=== PATIENT | female | born 1995 | race Caucasian/White ===

== ENCOUNTER 2021-12-27 11:17 | Outpatient (CLI) | payer BC ==
[2021-12-27 23:42] LABS: SARS-CoV-2 PCR by NAA Not Detected (NotDetected)
== END 2021-12-27 11:18 | disposition home or self-care (01) ==
LOC: CSHLAB 11:17
PROVIDERS: ATTEND Obstetrics & Gynecology
DX: Z20.822 Contact with and (suspected) exposure to COVID-19 (principal)
CPT/HCPCS: U0003; U0005

== ENCOUNTER 2021-12-30 16:52 | Inpatient (IN) | payer BC ==
[~2021-12-30 16:52] MED LIST: Bupivacaine/Epinephrine 0.25% 30 ML VIAL ONE; Lidocaine 2% MPF 10 ML AMP (For Epidural Use) ONE; ePHEDrine Sulfate 50 MG/10 ML VIAL ONE
[2021-12-30 18:37] VITALS: BMI 39.6
[2021-12-30] MEDS ORDERED: Diphenoxylate HCl/Atropine Tablet PO PRN ×2 (19:26)
[2021-12-30] MEDS ORDERED: Ibuprofen 800 MG TAB PO PRN (19:26)
[2021-12-30] MEDS ORDERED: Ondansetron PF 4 MG/2 ML Vial IVP PRN (19:26)
[2021-12-30] MEDS ORDERED: Carboprost 250 MCG/ML AMP IM PRN (19:26)
[2021-12-30] MEDS ORDERED: Acetaminophen 500 MG TAB PO PRN (19:26)
[2021-12-30] MEDS ORDERED: Zolpidem Tartrate 5 MG TAB PO PRN (19:26)
[2021-12-30] MEDS ORDERED: Lidocaine 1% (PF) 30 ML VIAL SC PRN (19:26)
[2021-12-30] MEDS ORDERED: hydrALAZINE 20 MG/ML VIAL SLOW IVP PRN (19:26)
[2021-12-30] MEDS ORDERED: Docusate 100 MG CAP PO PRN (19:26)
[2021-12-30] MEDS ORDERED: Misoprostol 200 MCG TAB PR PRN (19:26)
[2021-12-30] MEDS ORDERED: HYDROcodone/Acetaminophen 5/325 mg Tablet PO PRN (19:26)
[2021-12-30] MEDS ORDERED: Promethazine HCl 25 MG/ML VIAL IM PRN (19:26)
[2021-12-30] MEDS ORDERED: Butorphanol Tartrate 1 MG/ML VIAL SLOW IVP PRN (19:26)
[2021-12-30] MEDS ORDERED: NS w/ Oxytocin 30 units 500 ML IV SCH ×2 (19:30)
[2021-12-30] MEDS ORDERED: Penicillin G Potassium 5 MILL.UNITS in Sodium Chloride 0.9% 100 ML IVPB SCH (19:30)
[2021-12-30 19:35] LABS: Hemoglobin 12.4 g/dL (12.0-15.5); Mean Corpuscular HGB CONC 33.2 g/dL (32.0-36.0); Mean Corpuscular Hemoglobin 30.8 pg (27.0-33.0); Mean Corpuscular Volume 92.6 fl (81.6-98.3); Platelet Count 198 10x3/uL (150-450); RBC Distribution Width 13.1 % (11.5-14.5); Red Blood Cell (RBC) Count 4.03 10x6/uL (3.90-5.03); White Blood Cell (WBC) Count 10.1 10x3/uL (3.5-10.5)
[2021-12-30] MEDS: Misoprostol 100 MCG TAB VAG SCH (19:59)
[2021-12-30 20:08] LABS: Hep B Surf Ag Non-Reactive S/CO (NonReactive); Syphilis Antibody Nonreactive (Nonreactive); Syphilis Antibody Index 0.04 S/CO (<1.00 Non-Reactive)
[2021-12-30 20:10] LABS: HBSAg Index 0.13 S/CO (0-0.99)
[2021-12-31] MEDS: Penicillin G 2.5 MILL.units 2.5 MILL.UNITS in Premix Bag 1 BAG IVPB SCH ×4 (00:06→15:57)
[2021-12-31] MEDS ORDERED: Fentanyl 2 mcg/Bup 0.1% Cadd 100 ML ONE ×3 (07:34→15:45)
[2021-12-31] MEDS: Lactated Ringer's 1,000 ML IV SCH (10:03)
[2021-12-31] MEDS ORDERED: Erythromycin Base 0.5% Oint 1 GM TUBE ONE (17:42)
[2021-12-31] MEDS ORDERED: Phytonadione Neonatal 1 MG/0.5 ML AMP ONE (17:43)
[2021-12-31] MEDS ORDERED: Measles/Mumps/Rubella 10 MCG/0.5 ML VIAL SC ONE (21:08)
[2021-12-31] MEDS ORDERED: NS w/ Oxytocin 30 units 500 ML IV SCH (21:08)
[2021-12-31] MEDS ORDERED: Misoprostol 200 MCG TAB VAG PRN (21:08)
[2021-12-31] MEDS ORDERED: Varicella virus, LIVE 0.5 ML VIAL SC ONE (21:08)
[2021-12-31] MEDS ORDERED: Ondansetron PF 4 MG/2 ML Vial IVP PRN (21:08)
[2021-12-31] MEDS ORDERED: hydrALAZINE 20 MG/ML VIAL SLOW IVP PRN (21:08)
[2021-12-31] MEDS ORDERED: Preparation H Ointment 28 GM TUBE PR PRN (21:08)
[2021-12-31] MEDS ORDERED: Boostrix 0.5 ML (Tdap) VIAL IM ONE (21:08)
[2021-12-31] MEDS ORDERED: Bisacodyl 10 MG SUPP PR PRN (21:08)
[2021-12-31] MEDS ORDERED: Benzocaine-Menthol 82.5 ML CAN TOP PRN (21:08)
[2021-12-31] MEDS ORDERED: Milk Of Magnesia 30 ML UDCUP PO PRN (21:08)
[2021-12-31] MEDS ORDERED: Promethazine HCl 25 MG/ML VIAL IM PRN (21:08)
[2021-12-31] MEDS ORDERED: Methylergonovine 0.2 MG/ML VIAL IM PRN (21:08)
[2021-12-31] MEDS ORDERED: Lanolin Ointment 7 GM TUBE TOP PRN (21:08)
[2021-12-31] MEDS ORDERED: Zolpidem Tartrate 5 MG TAB PO PRN (21:08)
[2021-12-31] MEDS ORDERED: diphenhydrAMINE 25 MG CAP PO PRN (21:08)
[2021-12-31] MEDS: Docusate 100 MG CAP PO SCH (21:30)
[2021-12-31] MEDS: Ibuprofen 800 MG TAB PO SCH (21:30)
[2022-01-01] MEDS: HYDROcodone/Acetaminophen 5/325 mg Tablet PO PRN ×2 (02:02→09:23)
[2022-01-01 04:24] LABS: Hemoglobin 12.1 g/dL (12.0-15.5); Mean Corpuscular HGB CONC 34.7 g/dL (32.0-36.0); Mean Corpuscular Hemoglobin 31.7 pg (27.0-33.0); Mean Corpuscular Volume 91.4 fl (81.6-98.3); Mean Platelet Volume 12.3 fl (7.4-10.4); Platelet Count 171 10x3/uL (150-450); RBC Distribution Width 13.2 % (11.5-14.5); Red Blood Cell (RBC) Count 3.82 10x6/uL (3.90-5.03); White Blood Cell (WBC) Count 13.9 10x3/uL (3.5-10.5)
[2022-01-01] MEDS: Ibuprofen 800 MG TAB PO SCH ×3 (05:51→21:55)
[2022-01-01] MEDS: Ferrous Sulfate 325 MG TAB PO SCH (07:23)
[2022-01-01] MEDS: Misoprostol 100 MCG TAB VAG SCH ×2 (07:27→07:29)
[2022-01-01] MEDS: Lactated Ringer's 1,000 ML IV SCH (07:28)
[2022-01-01] MEDS: Penicillin G 2.5 MILL.units 2.5 MILL.UNITS in Premix Bag 1 BAG IVPB SCH (07:28)
[2022-01-01] MEDS: Prenatal Vitamin 1 TAB PO SCH (09:23)
[2022-01-01] MEDS: Docusate 100 MG CAP PO SCH ×2 (09:23→21:54)
[2022-01-02] MEDS: HYDROcodone/Acetaminophen 5/325 mg Tablet PO PRN (01:27)
[2022-01-02] MEDS: Ibuprofen 800 MG TAB PO SCH (05:37)
[2022-01-02] MEDS: Ferrous Sulfate 325 MG TAB PO SCH (09:16)
[2022-01-02] MEDS: Prenatal Vitamin 1 TAB PO SCH (09:18)
[2022-01-02] MEDS: Docusate 100 MG CAP PO SCH (09:18)
[2022-01-02 11:38] VITALS: BP 112/67; TEMP 98.3
== END 2022-01-02 13:10 | disposition home or self-care (01) | DRG 807 ==
LOC: CSHLD 17:54 → CSHPP 12-31 20:30
PROVIDERS: ADMIT Obstetrics & Gynecology; ATTEND Obstetrics & Gynecology
PROC: 10E0XZZ Delivery of Products of Conception, External Approach (ICD-10-PCS; principal; 2021-12-31)
PROC: 0HQ9XZZ Repair Perineum Skin, External Approach (ICD-10-PCS; 2021-12-31)
PROC: 10907ZC Drainage of Amniotic Fluid, Therapeutic from Products of Conception, Via Natural or Artificial Opening (ICD-10-PCS; 2021-12-31)
PROC: 3E033VJ Introduction of Other Hormone into Peripheral Vein, Percutaneous Approach (ICD-10-PCS; 2021-12-31)
PROC: 3E0P7VZ Introduction of Hormone into Female Reproductive, Via Natural or Artificial Opening (ICD-10-PCS; 2021-12-31)
DX: O13.4 Gestational [pregnancy-induced] hypertension without significant proteinuria, complicating childbirth (principal); Z37.0 Single live birth; O99.344 Other mental disorders complicating childbirth; F31.9 Bipolar disorder, unspecified; Z3A.38 38 weeks gestation of pregnancy; O70.0 First degree perineal laceration during delivery
CPT/HCPCS: 36415; 51702; 85027; 86780; 86850; 86900; 86901; 87340; J2405; J2540; J2590; J3490; J7120; U0003; U0005